=== PATIENT | male | born 1940 | race Caucasian/White ===

== ENCOUNTER 2020-06-30 13:41 | Inpatient (IN) | payer MEDICARE ==
[~2020-06-30 13:41] MED LIST: Rocuronium Bromide 10 MG/ML (10ML VIAL) ONE; ePHEDrine 50 MG/ML VIAL ONE
[2020-06-30] MEDS ORDERED: Piperacillin/Tazobactam 4.5 GM VIAL ONE (13:47)
[2020-06-30] MEDS ORDERED: Calcium Chloride 1 GM/10 ML Abboject SYRINGE ONE (13:58)
[2020-06-30 14:13] LABS: #Eosinphils 0.1 thou/uL (0.0-0.7); #Lymphocytes 3.6 thou/uL (1.20-3.40); #Monocytes 0.4 thou/uL (0.11-0.59); #Neutrophils 12.4 thou/uL (1.40-6.50); %Basophils 0.2 % (0.0-1.0); %Eosinophils 0.5 % (0.0-10.0); %Monocytes 2.2 % (0.0-10.0); Hemoglobin 11.1 g/dL (14.0-18.0); Mean Corpuscular HGB CONC 33.8 g/dL (32.0-36.0); Mean Corpuscular Hemoglobin 31.6 pg (27.0-31.0); Mean Corpuscular Volume 93.6 fL (78.0-98.0); Mean Platelet Volume 7.9 fL (7.4-10.4); Platelet Count 109 thou/uL (130-400); RBC Distribution Width 12.8 % (11.5-14.5); Red Blood Cell (RBC) Count 3.51 mill/uL (4.70-6.10); White Blood Cell (WBC) Count 16.5 thou/uL (4.8-10.8)
[2020-06-30] MEDS ORDERED: Fentanyl 250 MCG/5 ML VIAL ONE ×2 (14:13→22:27)
[2020-06-30] MEDS ORDERED: PHENYLEPHRINE-NS 100 MCG/ML 10 ML SYRINGE ONE (14:13)
[2020-06-30] MEDS ORDERED: ePHEDrine 50 MG/ML VIAL ONE (14:13)
[2020-06-30] MEDS ORDERED: Ketamine 50 MG/ML (10ML VIAL) ONE (14:13)
[2020-06-30] MEDS ORDERED: Phenylephrine 10 MG/ML VIAL ONE ×2 (14:14→22:27)
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
[2020-06-30 14:22] LABS: INR-International Normal Ratio 1.7; PTT 36.1 sec (22.9-36.1); Prothrombin Time 20.3 sec (12.0-14.7)
[2020-06-30 14:26] LABS: Burr Cells SLIGHT = 2-5 cells (100X) (0-1/hpf); MDiff Complete? YES; Platelet Morphology Comment Appears Decreased
[2020-06-30] MEDS ORDERED: HUMAN PROTHROMBIN COMPLX IV SCH ×2 (14:30→23:00)
[2020-06-30] MEDS ORDERED: ADMIXTURE FEE IV SCH ×2 (14:30→23:00)
[2020-06-30 14:42] LABS: ALT (SGPT) 19 U/L (8-55); AST (SGOT) 30 U/L (5-34); Albumin 2.5 g/dL (3.4-4.8); Alkaline Phosphatase 51 U/L (40-110); Anion Gap 19 mmol/L (10-20); BUN (Urea Nitrogen) 26 mg/dL (8.4-25.7); Bilirubin, Total 0.4 mg/dL (0.2-1.2); Calc. Creatinine Clearance 0 mL/min (70-130); Carbon Dioxide 17 mmol/L (23-31); Chloride 105 mmol/L (98-107); Globulin 2.1 g/dL (2.4-3.5); Glucose 315 mg/dL (83-110); Lipase 114 U/L (8-78); Potassium 4.5 mmol/L (3.5-5.1); Protein, Total 4.6 g/dL (5.8-8.1); Sodium 136 mmol/L (136-145)
[2020-06-30] MEDS ORDERED: EPINEPHrine 1 MG/10 ML Abboject SYRINGE ONE (14:46)
[2020-06-30] MEDS ORDERED: EPINEPHrine 1 MG/ML AMP ONE (14:46)
[2020-06-30 14:48] LABS: Lactic Acid 5.2 mmol/L (0.5-2.2)
[2020-06-30] MEDS ORDERED: Norepinephrine 4 MG/4 ML VIAL ONE (14:55)
[2020-06-30] MEDS ORDERED: Insulin Regular 300 UNITS/3 ML VIAL ONE (14:57)
[2020-06-30] MEDS ORDERED: Sodium Bicarb 50 MEQ/50 ML Abboject 8.4% SYRINGE ONE ×3 (15:03→23:22)
[2020-06-30] MEDS ORDERED: Vasopressin 20 UNIT, Admixture Fee 1 EACH in Sodium Chloride 0.9% 50 ML IV SCH (16:15)
--- NOTE | 2020-06-30 16:40 | RAD ---
Abdomen one view HISTORY: Abdominal surgery. Evaluate lap sponge. FINDINGS: Tip of the Dobbhoff feeding catheter projects over the left upper quadrant, at the expected location of the ligament of Treitz, directed towards the proximal jejunum. Nasogastric tube partially visualized, with the proximal port just below the level of the GE junction . Contrast material within the urinary collecting system from recent CT. Visualized bowel gas pattern is nonspecific. All of the abdomen to the left of midline is included on the image. The right abdomen is not fully included. No metallic foreign bodies to correlate with a needle or lap sponge are apparent.
[2020-06-30 16:59] LABS: Actual Bicarbonate (HCO3a) 20.1 mEq/L (22-28); Base Excess (BEa) -4.9 mEq/L (-2.0 to +3.0); CO2 Tension 37.1 mmHg (35.0-45.0); Carboxyhemoglobin (COHb) 0.2 gm% (0.0-3.0); Hemoglobin (Hb) 10.2 g/dL (14.0-18.0); O2 Tension (PaO2), arterial 94.6 mmHg (> 60.0); pH, Arterial 7.35 (7.35-7.45)
[2020-06-30 17:00] LABS: Calcium, Ionized (arterial) 1.18 mmol/L (1.12-1.30); Potassium - ABG Lab 2.98 mmol/L (3.70-5.30)
[2020-06-30 17:02] LABS: ALV-art Gradient 215.525 mmHg (0-20); Puncture Site Arterial Line
[2020-06-30] MEDS ORDERED: Dextrose 5% in Water 1,000 ML IV PRN (17:24)
[2020-06-30] MEDS ORDERED: Ventilator Sedation Protocol 1 EACH FS ONE (17:24)
[2020-06-30] MEDS ORDERED: Dextrose 50% Abboject 50 ML SYRINGE SLOW IVP PRN (17:24)
[2020-06-30] MEDS ORDERED: Albumin 5% 500 ML ONE (17:36)
[2020-06-30] MEDS ORDERED: Norepinephrine 8 MG/0.9% NS 250 ML IVPB SCH (17:45)
[2020-06-30 18:03] LABS: Hemoglobin 8.5 g/dL (14.0-18.0); Mean Corpuscular HGB CONC 34.8 g/dL (32.0-36.0); Mean Corpuscular Hemoglobin 30.8 pg (27.0-31.0); Mean Corpuscular Volume 88.4 fL (78.0-98.0); Mean Platelet Volume 7.5 fL (7.4-10.4); Platelet Count 100 thou/uL (130-400); RBC Distribution Width 13.6 % (11.5-14.5); Red Blood Cell (RBC) Count 2.75 mill/uL (4.70-6.10); White Blood Cell (WBC) Count 6.4 thou/uL (4.8-10.8)
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
[2020-06-30 18:16] LABS: Lactic Acid 6.5 mmol/L (0.5-2.2)
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
[2020-06-30 18:25] LABS: Anion Gap 16 mmol/L (10-20); BUN (Urea Nitrogen) 23 mg/dL (8.4-25.7); Calc. Creatinine Clearance 59 mL/min (70-130); Calcium 7.8 mg/dL (7.8-10.44); Carbon Dioxide 19 mmol/L (23-31); Chloride 111 mmol/L (98-107); Glucose 130 mg/dL (83-110); Magnesium 1.6 mg/dL (1.6-2.6); Potassium 3.3 mmol/L (3.5-5.1); Sodium 143 mmol/L (136-145)
[2020-06-30 18:26] LABS: SARS-CoV-2 NAA Rapid Test DETECTED (NotDetected)
[2020-06-30 18:30] LABS: Band 27 % (5-11); Eosinophils 2 % (0-10); Lymphocytes 17 % (21-51); MDiff Complete? YES; Monocytes 2 % (0-10); Neutrophil 49 % (42-75); Ovalocytes SLIGHT = 2-5 cells (100X) (0-1/hpf); Platelet Morphology Comment Appears Decreased; Polychromasia SLIGHT = 2-3 cells (100X) (0-2/hpf); Reactive Lymphocytes 2 % (0-10)
[2020-06-30] MEDS ORDERED: Morphine 2 MG/ML VIAL SLOW IVP PRN (18:45)
[2020-06-30] MEDS ORDERED: Norepinephrine 8 MG in Dextrose 5% in Water 242 ML IVPB SCH (18:45)
[2020-06-30] MEDS ORDERED: DISCONTINUE PREVIOUS NARCOTIC PAIN MEDICATIONS AND BENZODIAZEPINES FS SCH (18:45)
[2020-06-30] MEDS ORDERED: Propofol BOLUS 1,000 MG/100 ML VIAL IV PRN (18:45)
[2020-06-30] MEDS ORDERED: Magnesium 2 GM/50 ML 2 GM in Premix Bag 1 BAG IVPB SCH (18:45)
[2020-06-30] MEDS ORDERED: Fentanyl BOLUS 250 ML IVPB PRN (18:45)
[2020-06-30] MEDS ORDERED: Lorazepam 2 MG/ML VIAL SLOW IVP PRN (18:45)
[2020-06-30] MEDS ORDERED: Lactated Ringer's 1,000 ML IV SCH (18:45)
[2020-06-30] MEDS ORDERED: Potassium Phosphate 30 MMOL in Sodium Chloride 0.9% 500 ML IVPB SCH (19:00)
[2020-06-30] MEDS ORDERED: Piperacillin/Tazobactam 3.375 GM in Sodium Chloride 0.9% 100 ML IVPB SCH (20:00)
[2020-06-30 20:02] LABS: Mean Corpuscular HGB CONC 34.5 g/dL (32.0-36.0); Mean Corpuscular Hemoglobin 30.9 pg (27.0-31.0); Mean Corpuscular Volume 89.5 fL (78.0-98.0); Mean Platelet Volume 7.9 fL (7.4-10.4); Platelet Count 77 thou/uL (130-400); RBC Distribution Width 13.7 % (11.5-14.5); Red Blood Cell (RBC) Count 2.58 mill/uL (4.70-6.10); White Blood Cell (WBC) Count 7.5 thou/uL (4.8-10.8)
[2020-06-30 20:06] LABS: INR-International Normal Ratio 2.1; Prothrombin Time 23.7 sec (12.0-14.7)
[2020-06-30 20:07] LABS: PTT 48.1 sec (22.9-36.1)
[2020-06-30 20:11] LABS: FSP-Qualitative ABNORMAL (Normal); FSP-Semiquantitative >=5 & <20 mcg/mL (Less than 5); Fibrinogen 127 mg/dL (253-463)
[2020-06-30 20:14] LABS: D-Dimer Test 4.67 *mcg/mL (0.27-0.43)
[2020-06-30] MEDS ORDERED: Sodium Bicarb 50 MEQ/50 ML Abboject 8.4% SYRINGE IVP SCH (20:15)
[2020-06-30] MEDS: Lactated Ringer's 1,000 ML IV SCH (20:27)
[2020-06-30] MEDS ORDERED: Fentanyl 100 MCG/2 ML VIAL ONE (20:33)
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
[2020-06-30 20:51] LABS: Actual Bicarbonate (HCO3a) 20.6 mEq/L (22-28); Base Excess (BEa) -4.7 mEq/L (-2.0 to +3.0); CO2 Tension 38.7 mmHg (35.0-45.0); Calcium, Ionized (arterial) 0.96 mmol/L (1.12-1.30); Carboxyhemoglobin (COHb) 1.1 gm% (0.0-3.0); O2 Tension (PaO2), arterial 109.3 mmHg (> 60.0); Potassium - ABG Lab 3.78 mmol/L (3.70-5.30); pH, Arterial 7.34 (7.35-7.45)
[2020-06-30 20:53] LABS: Hemoglobin (Hb) 5.8 g/dL (14.0-18.0); Puncture Site Arterial Line
[2020-06-30 20:54] LABS: ALV-art Gradient 198.825 mmHg (0-20)
[2020-06-30] MEDS ORDERED: Fentanyl 100 MCG/2 ML VIAL SLOW IVP SCH (21:00)
[2020-06-30] MEDS ORDERED: Calcium Chloride 1 GM/10 ML Abboject SYRINGE IVP SCH (21:15)
[2020-06-30 21:17] LABS: Lactic Acid 8.1 mmol/L (0.5-2.2)
[2020-06-30 22:24] LABS: Lactic Acid 10.6 mmol/L (0.5-2.2)
[2020-06-30] MEDS ORDERED: Midazolam HCl 5 mg/5 ml Vial ONE (23:11)
[2020-06-30] MEDS ORDERED: Sodium Bicarbonate 2.5 MEQ/5 ML VIAL ONE (23:21)
[2020-07-01 00:26] LABS: Hemoglobin 8.3 g/dL (14.0-18.0); Mean Corpuscular HGB CONC 34.1 g/dL (32.0-36.0); Mean Corpuscular Volume 88.1 fL (78.0-98.0); Mean Platelet Volume 7.2 fL (7.4-10.4); Platelet Count 59 thou/uL (130-400); RBC Distribution Width 15.2 % (11.5-14.5); Red Blood Cell (RBC) Count 2.76 mill/uL (4.70-6.10); White Blood Cell (WBC) Count 3.7 thou/uL (4.8-10.8)
[2020-07-01 00:32] LABS: INR-International Normal Ratio 1.4; Prothrombin Time 17.5 sec (12.0-14.7)
[2020-07-01 00:33] LABS: PTT 45.1 sec (22.9-36.1)
[2020-07-01] MEDS: Propofol 1,000 MG/100 ML VIAL IV PRN (01:31)
[2020-07-01] MEDS: fentaNYL Citrate/PF 2,000 MCG in Sodium Chloride 0.9% 60 ML IV SCH ×2 (01:32→15:34)
[2020-07-01 02:06] LABS: Actual Bicarbonate (HCO3a) 25.2 mEq/L (22-28); Base Excess (BEa) 0.9 mEq/L (-2.0 to +3.0); CO2 Tension 38.6 mmHg (35.0-45.0); Calcium, Ionized (arterial) 1.04 mmol/L (1.12-1.30); Carboxyhemoglobin (COHb) 1.2 gm% (0.0-3.0); Hemoglobin (Hb) 7.6 g/dL (14.0-18.0); Potassium - ABG Lab 4.23 mmol/L (3.70-5.30); pH, Arterial 7.43 (7.35-7.45)
[2020-07-01] MEDS: Piperacillin/Tazobactam 3.375 GM in Sodium Chloride 0.9% 100 ML IVPB SCH ×4 (02:07→20:00)
[2020-07-01 02:09] LABS: O2 Tension (PaO2), arterial 53.9 mmHg (> 60.0)
[2020-07-01 02:10] LABS: Puncture Site Arterial Line
[2020-07-01] MEDS ORDERED: Calcium Chloride 1 GM/10 ML Abboject SYRINGE IVP SCH (03:00)
[2020-07-01 03:34] LABS: Actual Bicarbonate (HCO3a) 25.3 mEq/L (22-28); Base Excess (BEa) 1.8 mEq/L (-2.0 to +3.0); CO2 Tension 34.5 mmHg (35.0-45.0); Calcium, Ionized (arterial) 1.32 mmol/L (1.12-1.30); Carboxyhemoglobin (COHb) 0.7 gm% (0.0-3.0); Hemoglobin (Hb) 7.5 g/dL (14.0-18.0); O2 Tension (PaO2), arterial 106.2 mmHg (> 60.0); Potassium - ABG Lab 4.03 mmol/L (3.70-5.30); pH, Arterial 7.48 (7.35-7.45)
[2020-07-01 03:36] LABS: ALV-art Gradient 207.175 mmHg (0-20); Puncture Site Arterial Line
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
[2020-07-01 06:18] LABS: #Lymphocytes 1.3 thou/uL (1.20-3.40); #Monocytes 0.3 thou/uL (0.11-0.59); %Lymphocytes 29.4 % (21.0-51.0); %Monocytes 5.8 % (0.0-10.0); %Neutrophils 64.8 % (42.0-75.0); Hemoglobin 7.6 g/dL (14.0-18.0); Mean Corpuscular HGB CONC 34.9 g/dL (32.0-36.0); Mean Corpuscular Hemoglobin 30.7 pg (27.0-31.0); Mean Corpuscular Volume 87.9 fL (78.0-98.0); Mean Platelet Volume 9.1 fL (7.4-10.4); Platelet Count 75 thou/uL (130-400); RBC Distribution Width 15.1 % (11.5-14.5); Red Blood Cell (RBC) Count 2.48 mill/uL (4.70-6.10); White Blood Cell (WBC) Count 4.6 thou/uL (4.8-10.8)
[2020-07-01 06:21] LABS: INR-International Normal Ratio 1.4; Prothrombin Time 16.9 sec (12.0-14.7)
[2020-07-01 06:22] LABS: PTT 40.5 sec (22.9-36.1)
[2020-07-01 06:46] LABS: Lactic Acid 6.5 mmol/L (0.5-2.2)
[2020-07-01 06:51] LABS: ALT (SGPT) 88 U/L (8-55); AST (SGOT) 131 U/L (5-34); Albumin 2.8 g/dL (3.4-4.8); Alkaline Phosphatase 45 U/L (40-110); Anion Gap 20 mmol/L (10-20); BUN (Urea Nitrogen) 24 mg/dL (8.4-25.7); Bilirubin, Total 1.6 mg/dL (0.2-1.2); Calc. Creatinine Clearance 55 mL/min (70-130); Calcium 9.8 mg/dL (7.8-10.44); Carbon Dioxide 24 mmol/L (23-31); Chloride 107 mmol/L (98-107); Globulin 1.9 g/dL (2.4-3.5); Glucose 114 mg/dL (83-110); Magnesium 1.6 mg/dL (1.6-2.6); Phosphorus 5.6 mg/dL (2.3-4.7); Potassium 4.2 mmol/L (3.5-5.1); Protein, Total 4.7 g/dL (5.8-8.1); Sodium 147 mmol/L (136-145)
[2020-07-01] MEDS: Lactated Ringer's 1,000 ML IV SCH ×4 (07:20→20:26)
[2020-07-01 07:39] LABS: Actual Bicarbonate (HCO3a) 22.7 mEq/L (22-28); Base Excess (BEa) -0.9 mEq/L (-2.0 to +3.0); CO2 Tension 33.1 mmHg (35.0-45.0); Calcium, Ionized (arterial) 1.18 mmol/L (1.12-1.30); Carboxyhemoglobin (COHb) 1.5 gm% (0.0-3.0); Hemoglobin (Hb) 8.1 g/dL (14.0-18.0); O2 Tension (PaO2), arterial 125.9 mmHg (> 60.0); Potassium - ABG Lab 4.05 mmol/L (3.70-5.30); pH, Arterial 7.46 (7.35-7.45)
[2020-07-01 07:40] LABS: Puncture Site Arterial Line
[2020-07-01 07:41] LABS: ALV-art Gradient 189.225 mmHg (0-20)
[2020-07-01] MEDS ORDERED: Magnesium 2 GM/50 ML 2 GM in Premix Bag 1 BAG IVPB SCH (08:00)
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
[2020-07-01 08:33] LABS: INR-International Normal Ratio 1.5; PTT 40.9 sec (22.9-36.1); Prothrombin Time 18.3 sec (12.0-14.7)
--- NOTE | 2020-07-01 08:38 | RAD ---
PORTABLE SUPINE CHEST: INDICATION: Intubation. CCU followup. COMPARISON: 06/30/2020. FINDINGS: ET tube and NG tube unchanged. Central line unchanged. Bilateral effusions and right basilar atelectasis or infiltrate. The mid an d upper lung calloway are aerated and clear and unchanged from yesterday. IMPRESSION: Increasing opacification in the right lung base since yesterday probably representing atelectasis and /or increasing effusion. No other significant interval change. POS: AGW
[2020-07-01] MEDS: Pantoprazole 40 MG VIAL IVP SCH (08:58)
[2020-07-01 10:25] LABS: #Basophils 0.1 thou/uL (0.0-0.2); #Lymphocytes 1.2 thou/uL (1.20-3.40); #Monocytes 0.4 thou/uL (0.11-0.59); #Neutrophils 5.8 thou/uL (1.40-6.50); %Basophils 0.7 % (0.0-1.0); %Eosinophils 0.1 % (0.0-10.0); %Monocytes 5.4 % (0.0-10.0); %Neutrophils 77.8 % (42.0-75.0); Hemoglobin 7.9 g/dL (14.0-18.0); Mean Corpuscular HGB CONC 35.4 g/dL (32.0-36.0); Mean Corpuscular Hemoglobin 31.2 pg (27.0-31.0); Mean Corpuscular Volume 87.9 fL (78.0-98.0); Mean Platelet Volume 8.4 fL (7.4-10.4); Platelet Count 82 thou/uL (130-400); Platelet Morphology Comment Appears Decreased; RBC Distribution Width 14.7 % (11.5-14.5); RBC Morphology Normal; Red Blood Cell (RBC) Count 2.53 mill/uL (4.70-6.10); White Blood Cell (WBC) Count 7.4 thou/uL (4.8-10.8)
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
[2020-07-01 12:36] LABS: INR-International Normal Ratio 1.7; PTT 43.7 sec (22.9-36.1); Prothrombin Time 19.9 sec (12.0-14.7)
[2020-07-01 14:36] LABS: Actual Bicarbonate (HCO3a) 25.7 mEq/L (22-28); Base Excess (BEa) 2.2 mEq/L (-2.0 to +3.0); CO2 Tension 35.6 mmHg (35.0-45.0); Carboxyhemoglobin (COHb) 0.8 gm% (0.0-3.0); Hemoglobin (Hb) 8.4 g/dL (14.0-18.0); O2 Tension (PaO2), arterial 85.5 mmHg (> 60.0); Potassium - ABG Lab 3.98 mmol/L (3.70-5.30); pH, Arterial 7.48 (7.35-7.45)
[2020-07-01 14:37] LABS: Puncture Site Arterial Line
[2020-07-01 16:04] LABS: Hemoglobin 8.2 g/dL (14.0-18.0); Mean Corpuscular HGB CONC 33.8 g/dL (32.0-36.0); Mean Corpuscular Hemoglobin 30.1 pg (27.0-31.0); Mean Corpuscular Volume 89.1 fL (78.0-98.0); Mean Platelet Volume 9.1 fL (7.4-10.4); Platelet Count 81 thou/uL (130-400); RBC Distribution Width 14.7 % (11.5-14.5); Red Blood Cell (RBC) Count 2.73 mill/uL (4.70-6.10); White Blood Cell (WBC) Count 8.2 thou/uL (4.8-10.8)
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
[2020-07-01 16:23] LABS: Band 52 % (5-11); Dohle Bodies SLIGHT; Lymphocytes 13 % (21-51); MDiff Complete? YES; Metamyelocyte 12 % (0-0); Myelocyte 1 % (0-0); Neutrophil 22 % (42-75); Ovalocytes SLIGHT = 2-5 cells (100X) (0-1/hpf); Platelet Morphology Comment Appears Decreased; Polychromasia SLIGHT = 2-3 cells (100X) (0-2/hpf)
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
[2020-07-01] MEDS ORDERED: Lactated Ringer's 500 ML IV SCH (20:00)
[2020-07-01] MEDS: Senokot S 8.6-50 MG TAB PO SCH (20:24)
[2020-07-01 20:31] LABS: Actual Bicarbonate (HCO3a) 25.9 mEq/L (22-28); Base Excess (BEa) 2.2 mEq/L (-2.0 to +3.0); CO2 Tension 36.1 mmHg (35.0-45.0); Calcium, Ionized (arterial) 1.18 mmol/L (1.12-1.30); Carboxyhemoglobin (COHb) 0.9 gm% (0.0-3.0); Hemoglobin (Hb) 7.6 g/dL (14.0-18.0); O2 Tension (PaO2), arterial 71.5 mmHg (> 60.0); Potassium - ABG Lab 3.75 mmol/L (3.70-5.30); pH, Arterial 7.47 (7.35-7.45)
[2020-07-01 20:33] LABS: ALV-art Gradient 239.875 mmHg (0-20); Puncture Site Arterial Line
[2020-07-01 21:26] LABS: Anion Gap 16 mmol/L (10-20); BUN (Urea Nitrogen) 26 mg/dL (8.4-25.7); Calc. Creatinine Clearance 53 mL/min (70-130); Calcium 8.7 mg/dL (7.8-10.44); Carbon Dioxide 28 mmol/L (23-31); Chloride 108 mmol/L (98-107); Glucose 138 mg/dL (83-110); Magnesium 1.7 mg/dL (1.6-2.6); Phosphorus 3.6 mg/dL (2.3-4.7); Potassium 3.9 mmol/L (3.5-5.1); Sodium 148 mmol/L (136-145)
[2020-07-01 21:50] LABS: Lactic Acid 5.7 mmol/L (0.5-2.2)
[2020-07-01 23:33] LABS: Band 36 % (5-11); Hemoglobin 7.8 g/dL (14.0-18.0); Lymphocytes 16 % (21-51); MDiff Complete? YES; Mean Corpuscular HGB CONC 34.6 g/dL (32.0-36.0); Mean Corpuscular Hemoglobin 31.1 pg (27.0-31.0); Mean Corpuscular Volume 89.9 fL (78.0-98.0); Mean Platelet Volume 8.9 fL (7.4-10.4); Metamyelocyte 2 % (0-0); Monocytes 2 % (0-10); Neutrophil 40 % (42-75); Platelet Count 75 thou/uL (130-400); Platelet Morphology Comment Appears Decreased; RBC Distribution Width 14.5 % (11.5-14.5); Reactive Lymphocytes 4 % (0-10); Red Blood Cell (RBC) Count 2.51 mill/uL (4.70-6.10); White Blood Cell (WBC) Count 8.1 thou/uL (4.8-10.8)
[2020-07-02] MEDS: Piperacillin/Tazobactam 3.375 GM in Sodium Chloride 0.9% 100 ML IVPB SCH ×4 (01:50→20:23)
--- NOTE | 2020-07-02 02:57 | PRG ---
DATE OF SERVICE: 07/01/2020 SUBJECTIVE: The patient was seen during evening rounds in the critical care unit. The patient remains on full ventilatory support. The patient was requiring Levophed earlier today, but is off all vasopressors at this time. The patient was given a 500 mL bolus of lactated Ringer's, which improved the patient's blood pressure and also 1 unit of packed red blood cells and 1 unit of fresh frozen plasma. The patient follows commands and denies being in any pain. Urinary output has been adequate for patient's age and weight. Abdominal wound VAC in place with serosanguineous output. OBJECTIVE: GENERAL: Well-appearing elderly male, awake, alert, follows commands. RESPIRATORY: Respirations are even and nonlabored, bilateral basilar lung sounds. LABORATORY DATA: WBC 8.1, RBC 2.51, hemoglobin 7.8, hematocrit 22.5, bands 36. Lactate 5.7. PLAN: Continue to resuscitate. Continue to monitor urinary output. Repeat labs in the morning. Job ID: [id number] MTDD
[2020-07-02] MEDS: fentaNYL Citrate/PF 2,000 MCG in Sodium Chloride 0.9% 60 ML IV SCH ×2 (03:07→17:25)
[2020-07-02 05:03] LABS: INR-International Normal Ratio 1.5
[2020-07-02 05:04] LABS: PTT 38.7 sec (22.9-36.1)
[2020-07-02 05:07] LABS: #Lymphocytes 1.2 thou/uL (1.20-3.40); #Monocytes 0.6 thou/uL (0.11-0.59); #Neutrophils 9.2 thou/uL (1.40-6.50); %Basophils 0.1 % (0.0-1.0); %Lymphocytes 11.1 % (21.0-51.0); %Monocytes 5.8 % (0.0-10.0); Hemoglobin 9.8 g/dL (14.0-18.0); Mean Corpuscular Hemoglobin 31.1 pg (27.0-31.0); Mean Corpuscular Volume 91.3 fL (78.0-98.0); Mean Platelet Volume 8.9 fL (7.4-10.4); Platelet Count 89 thou/uL (130-400); RBC Distribution Width 14.5 % (11.5-14.5); Red Blood Cell (RBC) Count 3.14 mill/uL (4.70-6.10); White Blood Cell (WBC) Count 11.1 thou/uL (4.8-10.8)
[2020-07-02 05:26] LABS: Anion Gap 14 mmol/L (10-20); BUN (Urea Nitrogen) 25 mg/dL (8.4-25.7); Calc. Creatinine Clearance 56 mL/min (70-130); Calcium 8.7 mg/dL (7.8-10.44); Carbon Dioxide 30 mmol/L (23-31); Chloride 107 mmol/L (98-107); Glucose 124 mg/dL (83-110); Lactic Acid 4.7 mmol/L (0.5-2.2); Magnesium 1.6 mg/dL (1.6-2.6); Phosphorus 3.5 mg/dL (2.3-4.7); Sodium 147 mmol/L (136-145)
[2020-07-02] MEDS: Lactated Ringer's 1,000 ML IV SCH (05:42)
[2020-07-02] MEDS ORDERED: Magnesium Sulfate 3 GM in Sodium Chloride 0.9% 100 ML IVPB SCH (06:33)
[2020-07-02 07:05] LABS: Hemoglobin 8.6 g/dL (14.0-18.0)
[2020-07-02] MEDS ORDERED: Potassium Phosphate 15 MMOL in Sodium Chloride 0.9% 250 ML 250 ML IVPB SCH (08:00)
[2020-07-02 08:01] LABS: Actual Bicarbonate (HCO3a) 28.5 mEq/L (22-28); Base Excess (BEa) 5.4 mEq/L (-2.0 to +3.0); CO2 Tension 35.6 mmHg (35.0-45.0); Calcium, Ionized (arterial) 1.16 mmol/L (1.12-1.30); Carboxyhemoglobin (COHb) 0.9 gm% (0.0-3.0); Hemoglobin (Hb) 8.1 g/dL (14.0-18.0); O2 Tension (PaO2), arterial 65.7 mmHg (> 60.0); Potassium - ABG Lab 3.57 mmol/L (3.70-5.30); pH, Arterial 7.52 (7.35-7.45)
[2020-07-02] MEDS: Polyethylene Glycol 3350 17 GM Packet PO SCH (08:06)
[2020-07-02] MEDS: Senokot S 8.6-50 MG TAB PO SCH ×2 (08:06→20:25)
[2020-07-02] MEDS: Pantoprazole 40 MG VIAL IVP SCH (08:07)
[2020-07-02 08:16] LABS: Puncture Site Arterial Line
--- NOTE | 2020-07-02 08:18 | RAD ---
EXAM: Single view of the chest HISTORY: Intubated patient with respiratory failure COMPARISON: 07/01/2020 FINDINGS: Single view of the chest shows an enlarged cardiomediastinal silhouette. Lines and tubes a re unchanged in position. A calcified granuloma projects over the right upper lobe. There is a moderate to large veil like opacity in the right thorax which likely represents a layering pleural ef fusion. Degenerative changes are seen in the spine. IMPRESSION: Moderate right pleural effusion
[2020-07-02] MEDS: Sodium Chloride 0.45% 1,000 ML IV SCH ×3 (08:36→22:59)
[2020-07-02] MEDS ORDERED: Lactated Ringer's 1,000 ML IV SCH (10:15)
[2020-07-02] MEDS: Midazolam HCl 2 mg/2 ml Vial ONE ×2 (10:41→11:30)
[2020-07-02] MEDS ORDERED: Lidocaine 1% (PF) 30 ML VIAL ONE (10:48)
[2020-07-02] MEDS ORDERED: Midazolam HCl 5 mg/5 ml Vial SLOW IVP SCH (11:00)
[2020-07-02] MEDS ORDERED: Rocuronium Bromide 10 MG/ML (10ML VIAL) ONE ×2 (11:24)
[2020-07-02] MEDS ORDERED: PHENYLEPHRINE-NS 100 MCG/ML 10 ML SYRINGE ONE (11:24)
[2020-07-02] MEDS ORDERED: Calcium Chloride 1 GM/10 ML Abboject SYRINGE ONE (11:24)
[2020-07-02] MEDS ORDERED: Fentanyl 100 MCG/2 ML VIAL ONE (14:33)
[2020-07-02] MEDS ORDERED: Ketamine 50 MG/ML (10ML VIAL) ONE (15:00)
[2020-07-02] MEDS ORDERED: Albumin 25% 100 ML ONE (15:28)
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
[2020-07-02 17:56] LABS: Actual Bicarbonate (HCO3a) 22.2 mEq/L (22-28); Base Excess (BEa) 0.5 mEq/L (-2.0 to +3.0); CO2 Tension 26.4 mmHg (35.0-45.0); Carboxyhemoglobin (COHb) 0.3 gm% (0.0-3.0); Hemoglobin (Hb) 10.2 g/dL (14.0-18.0); pH, Arterial 7.54 (7.35-7.45)
[2020-07-02 17:57] LABS: O2 Tension (PaO2), arterial 57.5 mmHg (> 60.0); Puncture Site Arterial Line
[2020-07-02 18:06] LABS: #Lymphocytes 0.8 thou/uL (1.20-3.40); #Monocytes 0.4 thou/uL (0.11-0.59); #Neutrophils 5.3 thou/uL (1.40-6.50); %Basophils 0.2 % (0.0-1.0); %Lymphocytes 11.7 % (21.0-51.0); %Monocytes 5.7 % (0.0-10.0); %Neutrophils 82.4 % (42.0-75.0); Mean Corpuscular HGB CONC 35.1 g/dL (32.0-36.0); Mean Corpuscular Hemoglobin 32.6 pg (27.0-31.0); Mean Corpuscular Volume 92.8 fL (78.0-98.0); Mean Platelet Volume 8.8 fL (7.4-10.4); Platelet Count 48 thou/uL (130-400); RBC Distribution Width 13.6 % (11.5-14.5); Red Blood Cell (RBC) Count 3.06 mill/uL (4.70-6.10); White Blood Cell (WBC) Count 6.4 thou/uL (4.8-10.8)
[2020-07-02 18:12] LABS: INR-International Normal Ratio 1.5; PTT 36.4 sec (22.9-36.1); Prothrombin Time 18.5 sec (12.0-14.7)
[2020-07-02] MEDS ORDERED: Calcium Chloride 13.6 MEQ in Sodium Chloride 0.9% 100 ML IVPB SCH (18:15)
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
[2020-07-02 18:28] LABS: Lactic Acid 3.7 mmol/L (0.5-2.2)
[2020-07-02 18:53] LABS: Phosphorus 3.8 mg/dL (2.3-4.7)
[2020-07-02 18:56] LABS: Anion Gap 16 mmol/L (10-20); BUN (Urea Nitrogen) 24 mg/dL (8.4-25.7); Calc. Creatinine Clearance 67 mL/min (70-130); Carbon Dioxide 23 mmol/L (23-31); Chloride 109 mmol/L (98-107); Glucose 180 mg/dL (83-110); Magnesium 1.8 mg/dL (1.6-2.6); Potassium 3.7 mmol/L (3.5-5.1); Sodium 144 mmol/L (136-145)
[2020-07-02] MEDS ORDERED: Magnesium Sulfate 2 GM in Sodium Chloride 0.9% 100 ML IVPB SCH (19:45)
[2020-07-02] MEDS ORDERED: Potassium Phosphate 15 MMOL, Magnesium Sulfate 2 GM in Sodium Chloride 0.9% 250 ML 250 ML IVPB SCH (19:45)
[2020-07-02] MEDS: Famotidine/PF 20 mg/2ml Vial SLOW IVP SCH (20:24)
[2020-07-02] MEDS: Propofol 1,000 MG/100 ML VIAL IV PRN (21:18)
[2020-07-02 22:26] LABS: Actual Bicarbonate (HCO3a) 24.6 mEq/L (22-28); Base Excess (BEa) 2.6 mEq/L (-2.0 to +3.0); CO2 Tension 28.7 mmHg (35.0-45.0); Calcium, Ionized (arterial) 1.17 mmol/L (1.12-1.30); Carboxyhemoglobin (COHb) 0.3 gm% (0.0-3.0); Hemoglobin (Hb) 9.4 g/dL (14.0-18.0); O2 Tension (PaO2), arterial 112.6 mmHg (> 60.0); Potassium - ABG Lab 3.39 mmol/L (3.70-5.30)
[2020-07-02 22:40] LABS: Puncture Site Arterial Line; pH, Arterial 7.55 (7.35-7.45)
[2020-07-02 22:41] LABS: ALV-art Gradient 243.675 mmHg (0-20)
[2020-07-02] MEDS: Ondansetron PF 4 MG/2 ML Vial IVP PRN (23:43)
--- NOTE | 2020-07-03 00:56 | PRG ---
DATE OF SERVICE: 07/02/2020 SUBJECTIVE: The patient was seen during evening rounds, sedated on full mechanical ventilatory support. The patient was taken back to the OR today by Dr. Carver for a re-exploratory laparotomy, segmental transverse colectomy and ligation of bleeding in the middle colic artery and evacuation of a large hemoperitoneum, abdominal washout and temporary abdominal closure with wound VAC. The patient did receive multiple blood products in the OR. Postop, the patient was hypotensive and requiring Levophed earlier today. The patient is currently off all vasopressors at this time. The patient has episodes of being hypertensive when he becomes anxious. Output from wound VAC currently 400 mL. Urinary output is adequate for age and weight. OBJECTIVE: VITAL SIGNS: Stable and the patient remains afebrile. HEENT: Head is atraumatic and normocephalic. Pupils are equal bilateral. No JVD. RESPIRATORY: Respirations are even and nonlabored, scattered rhonchi. CARDIAC: Irregularly irregular rhythm. ABDOMEN: Soft, nondistended, wound VAC in place. Return of moderate amount of serosanguineous fluid. LABORATORY DATA: P.m. labs; WBC 6.4, RBC 3.06, hemoglobin 10.0, hematocrit 28.4, and platelets 48. PT 18.5, INR 1.5, and APTT 36.4. Sodium 144, potassium 3.7, chloride 109, carbon dioxide 23, BUN 24, creatinine 1.44, estimated GFR 47, glucose 180, lactic acid 3.7, calcium 8.0, phosphorus 3.8, and magnesium 1.8. ABG; bicarb 24.6, pH 7.55, CO2 of 28.7, PO2 of 112.6, base excess 2.6, hemoglobin 9.4, hematocrit 28.0, ionized calcium 1.17. PLAN: Continue supportive care and full ventilatory support. We will decrease ventilatory rate to 14. Repeat labs and ABG in the morning. Replace electrolytes. Continue to monitor hemodynamics and urinary output. Job ID: [id number] [facility]
[2020-07-03] MEDS: Piperacillin/Tazobactam 3.375 GM in Sodium Chloride 0.9% 100 ML IVPB SCH ×4 (02:03→20:58)
[2020-07-03 04:36] LABS: INR-International Normal Ratio 1.5; Prothrombin Time 18.7 sec (12.0-14.7)
[2020-07-03 04:37] LABS: PTT 38.4 sec (22.9-36.1)
[2020-07-03 04:47] LABS: #Lymphocytes 0.8 thou/uL (1.20-3.40); #Monocytes 0.5 thou/uL (0.11-0.59); %Basophils 0.3 % (0.0-1.0); %Lymphocytes 12.7 % (21.0-51.0); %Monocytes 8.3 % (0.0-10.0); %Neutrophils 78.6 % (42.0-75.0); Hemoglobin 9.1 g/dL (14.0-18.0); Lactic Acid 2.1 mmol/L (0.5-2.2); Mean Corpuscular HGB CONC 35.8 g/dL (32.0-36.0); Mean Corpuscular Hemoglobin 33.5 pg (27.0-31.0); Mean Corpuscular Volume 93.5 fL (78.0-98.0); Mean Platelet Volume 9.3 fL (7.4-10.4); Platelet Count 46 thou/uL (130-400); RBC Distribution Width 13.9 % (11.5-14.5); Red Blood Cell (RBC) Count 2.72 mill/uL (4.70-6.10); White Blood Cell (WBC) Count 6.4 thou/uL (4.8-10.8)
[2020-07-03 05:06] LABS: Anion Gap 10 mmol/L (10-20); BUN (Urea Nitrogen) 23 mg/dL (8.4-25.7); Calc. Creatinine Clearance 73 mL/min (70-130); Calcium 8.3 mg/dL (7.8-10.44); Carbon Dioxide 28 mmol/L (23-31); Chloride 110 mmol/L (98-107); Glucose 118 mg/dL (83-110); Phosphorus 2.2 mg/dL (2.3-4.7); Potassium 3.4 mmol/L (3.5-5.1); Sodium 145 mmol/L (136-145)
[2020-07-03] MEDS ORDERED: Potassium Phosphate 30 MMOL in Sodium Chloride 0.9% 250 ML 250 ML IVPB SCH (07:30)
[2020-07-03 08:03] LABS: Actual Bicarbonate (HCO3a) 25.1 mEq/L (22-28); Base Excess (BEa) 3.1 mEq/L (-2.0 to +3.0); CO2 Tension 28.7 mmHg (35.0-45.0); Calcium, Ionized (arterial) 1.16 mmol/L (1.12-1.30); Carboxyhemoglobin (COHb) 0.9 gm% (0.0-3.0); Hemoglobin (Hb) 8.6 g/dL (14.0-18.0); O2 Tension (PaO2), arterial 96.6 mmHg (> 60.0); Potassium - ABG Lab 3.45 mmol/L (3.70-5.30)
[2020-07-03] MEDS: fentaNYL Citrate/PF 2,000 MCG in Sodium Chloride 0.9% 60 ML IV SCH (08:03)
[2020-07-03 08:18] LABS: Puncture Site Arterial Line; pH, Arterial 7.56 (7.35-7.45)
[2020-07-03 08:19] LABS: ALV-art Gradient 259.675 mmHg (0-20)
[2020-07-03] MEDS: Polyethylene Glycol 3350 17 GM Packet PO SCH (08:21)
[2020-07-03] MEDS: Senokot S 8.6-50 MG TAB PO SCH ×2 (08:21→20:58)
[2020-07-03] MEDS: Pantoprazole 40 MG VIAL IVP SCH (08:22)
[2020-07-03] MEDS: Sodium Chloride 0.45% 1,000 ML IV SCH ×2 (08:22→11:29)
[2020-07-03] MEDS: Famotidine/PF 20 mg/2ml Vial SLOW IVP SCH ×2 (08:22→20:57)
--- NOTE | 2020-07-03 09:25 | RAD ---
SUPINE PORTABLE CHEST: INDICATION: Chest tube. CCU followup. COMPARISON: 07/02/2020. FINDINGS/IMPRESSION: ET tube and NG tube remain in place. There is a right-sided chest tube along the lateral right chest with tip into the right apex. Central line overlies the upper SVC. Upper lungs are aerated. No significant pneumothorax. Left base is opacified obscuring the hemidiap hragm which may represent effusion and/or basilar atelectasis or infiltrate. POS: AGW
[2020-07-03 10:50] LABS: Actual Bicarbonate (HCO3a) 24.5 mEq/L (22-28); Base Excess (BEa) 1.3 mEq/L (-2.0 to +3.0); CO2 Tension 33.5 mmHg (35.0-45.0); Calcium, Ionized (arterial) 1.14 mmol/L (1.12-1.30); Carboxyhemoglobin (COHb) 0.3 gm% (0.0-3.0); Hemoglobin (Hb) 9.5 g/dL (14.0-18.0); O2 Tension (PaO2), arterial 100.9 mmHg (> 60.0); Potassium - ABG Lab 3.86 mmol/L (3.70-5.30); pH, Arterial 7.48 (7.35-7.45)
[2020-07-03 10:52] LABS: Puncture Site Arterial Line
[2020-07-03 10:56] LABS: ALV-art Gradient 178.075 mmHg (0-20)
[2020-07-03] MEDS: Dexamethasone 4 mg/ml Vial SLOW IVP SCH ×3 (11:57→23:33)
[2020-07-03] MEDS ORDERED: Dexamethasone Sod Phosphate 4 MG in Sodium Chloride 0.9% 50 ML IVPB SCH (12:00)
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
--- NOTE | 2020-07-03 23:11 | PRG ---
DATE OF SERVICE: 07/03/2020 SUBJECTIVE: Patient was seen during evening rounds on the critical care unit. The patient is currently sedated with fentanyl 75 mcg and Precedex 0.6 mg. The patient's vital signs are stable and he remains afebrile. Urinary output is adequate. The patient's abdominal wound VAC output since last change is approximately 50 mL. The patient's urinary output is adequate for age and weight. PLAN: Continue full ventilatory support. Continue sedation. The patient will be going to the OR by Dr. Carver for possible abdominal closure correction tomorrow. Repeat labs in the morning. Job ID: [id number]
[2020-07-03] MEDS: Insulin Regular 300 UNITS/3 ML VIAL SC PRN (23:34)
[2020-07-04] MEDS: Sodium Chloride 0.45% 1,000 ML IV SCH ×2 (01:36→13:31)
[2020-07-04] MEDS: Piperacillin/Tazobactam 3.375 GM in Sodium Chloride 0.9% 100 ML IVPB SCH ×4 (01:42→22:17)
[2020-07-04] MEDS: fentaNYL Citrate/PF 2,000 MCG in Sodium Chloride 0.9% 60 ML IV SCH (04:21)
[2020-07-04 04:40] LABS: INR-International Normal Ratio 1.2; PTT 34.5 sec (22.9-36.1); Prothrombin Time 15.3 sec (12.0-14.7)
[2020-07-04 04:51] LABS: Lactic Acid 1.7 mmol/L (0.5-2.2)
[2020-07-04 05:06] LABS: Anion Gap 13 mmol/L (10-20); BUN (Urea Nitrogen) 25 mg/dL (8.4-25.7); Calc. Creatinine Clearance 87 mL/min (70-130); Calcium 7.7 mg/dL (7.8-10.44); Carbon Dioxide 26 mmol/L (23-31); Chloride 109 mmol/L (98-107); Glucose 186 mg/dL (83-110); Potassium 3.8 mmol/L (3.5-5.1); Sodium 144 mmol/L (136-145)
[2020-07-04 05:18] LABS: Band 24 % (5-11); Hemoglobin 10.1 g/dL (14.0-18.0); Lymphocytes 5 % (21-51); MDiff Complete? YES; Mean Corpuscular HGB CONC 33.3 g/dL (32.0-36.0); Mean Corpuscular Volume 93.3 fL (78.0-98.0); Monocytes 9 % (0-10); Myelocyte 2 % (0-0); Neutrophil 60 % (42-75); Platelet Count 70 thou/uL (130-400); Platelet Morphology Comment Appears Decreased; RBC Distribution Width 13.9 % (11.5-14.5); Red Blood Cell (RBC) Count 3.26 mill/uL (4.70-6.10); White Blood Cell (WBC) Count 9.1 thou/uL (4.8-10.8)
[2020-07-04] MEDS: Dexamethasone 4 mg/ml Vial SLOW IVP SCH ×4 (05:43→23:35)
[2020-07-04] MEDS ORDERED: Midazolam HCl 5 mg/5 ml Vial ONE (07:04)
[2020-07-04] MEDS ORDERED: Fentanyl 100 MCG/2 ML VIAL ONE (07:04)
[2020-07-04 07:59] LABS: Actual Bicarbonate (HCO3a) 22.8 mEq/L (22-28); Base Excess (BEa) -0.5 mEq/L (-2.0 to +3.0); CO2 Tension 32.6 mmHg (35.0-45.0); Calcium, Ionized (arterial) 1.12 mmol/L (1.12-1.30); Carboxyhemoglobin (COHb) 0.3 gm% (0.0-3.0); Hemoglobin (Hb) 10.3 g/dL (14.0-18.0); O2 Tension (PaO2), arterial 81.7 mmHg (> 60.0); Potassium - ABG Lab 3.74 mmol/L (3.70-5.30); pH, Arterial 7.46 (7.35-7.45)
--- NOTE | 2020-07-04 08:01 | RAD ---
XR Chest 1 View Portable History: Respiratory failure Comparison: Radiograph prior day Findings: Endotracheal tube tip at the clavicular level. Weighted feeding tube and enteric tube tip j ust below diaphragm although out of field of view. Moderate effusions. Moderate bibasilar atelectasis. No pneumothorax. Left subclavian approach intravenous catheter tip projects over the azygos vein. Impression: Similar examination of the chest.
[2020-07-04] MEDS: Pantoprazole 40 MG VIAL IVP SCH (08:11)
[2020-07-04 08:16] LABS: Puncture Site Arterial Line
[2020-07-04] MEDS ORDERED: Vecuronium 10 MG VIAL ONE (09:22)
[2020-07-04] MEDS ORDERED: Rocuronium Bromide 10 MG/ML (10ML VIAL) ONE (09:22)
[2020-07-04] MEDS ORDERED: ePHEDrine 50 MG/ML VIAL ONE (09:22)
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
[2020-07-04] MEDS: Insulin Regular 300 UNITS/3 ML VIAL SC PRN ×2 (16:16→22:25)
[2020-07-05] MEDS: Piperacillin/Tazobactam 3.375 GM in Sodium Chloride 0.9% 100 ML IVPB SCH ×4 (01:54→20:40)
--- NOTE | 2020-07-05 02:00 | PRG ---
DATE OF SERVICE: 07/04/2020 SUBJECTIVE: Patient was seen during evening rounds in the critical care unit. The patient is awake, alert, confused and mildly agitated. The patient is currently on Precedex 0.4 and fentanyl 50 mcg an hour. The patient's vital signs are stable. He remains afebrile. PLAN: Continue supportive care and pain regimen. Physical and occupational therapy. Job ID: [id number]
[2020-07-05] MEDS: Dexamethasone 4 mg/ml Vial SLOW IVP SCH (05:01)
[2020-07-05] MEDS: Sodium Chloride 0.45% 1,000 ML IV SCH (05:02)
[2020-07-05 05:39] LABS: Lactic Acid 1.9 mmol/L (0.5-2.2)
[2020-07-05 05:52] LABS: Anion Gap 12 mmol/L (10-20); BUN (Urea Nitrogen) 27 mg/dL (8.4-25.7); Calc. Creatinine Clearance 86 mL/min (70-130); Calcium 7.3 mg/dL (7.8-10.44); Carbon Dioxide 27 mmol/L (23-31); Chloride 110 mmol/L (98-107); Glucose 149 mg/dL (83-110); Magnesium 1.9 mg/dL (1.6-2.6); Phosphorus 1.8 mg/dL (2.3-4.7); Potassium 3.8 mmol/L (3.5-5.1); Sodium 145 mmol/L (136-145)
[2020-07-05] MEDS ORDERED: Potassium Phosphate 30 MMOL in Sodium Chloride 0.9% 250 ML 250 ML IVPB SCH (06:45)
[2020-07-05 07:01] LABS: Band 28 % (5-11); Hemoglobin 11.1 g/dL (14.0-18.0); Lymphocytes 8 % (21-51); MDiff Complete? YES; Mean Corpuscular HGB CONC 32.5 g/dL (32.0-36.0); Mean Corpuscular Hemoglobin 31.3 pg (27.0-31.0); Mean Corpuscular Volume 96.3 fL (78.0-98.0); Mean Platelet Volume 8.6 fL (7.4-10.4); Monocytes 14 % (0-10); Myelocyte 1 % (0-0); Neutrophil 49 % (42-75); Platelet Count 112 thou/uL (130-400); Platelet Morphology Comment Appears Decreased; RBC Distribution Width 14.2 % (11.5-14.5); Red Blood Cell (RBC) Count 3.55 mill/uL (4.70-6.10); White Blood Cell (WBC) Count 16.8 thou/uL (4.8-10.8)
[2020-07-05] MEDS: Pantoprazole 40 MG VIAL IVP SCH (07:32)
[2020-07-05] MEDS ORDERED: Morphine 4 MG/ML VIAL SLOW IVP PRN ×2 (07:56→08:01)
[2020-07-05] MEDS ORDERED: Morphine 2 MG/ML VIAL SLOW IVP PRN ×2 (07:56→08:01)
--- NOTE | 2020-07-05 08:19 | RAD ---
XR Chest 1 View Portable History: Chest tube Comparison: Radiograph prior day Findings: Right thoracostomy tube tip at the lung apex. Weighted feeding tube tip below diaphragm alt cezar likely within the third portion duodenum in good position. The suction tube tip not well seen on the likely the gastric body. Left subclavian central venous catheter is similar. Moderate layering effusions. Impression: Similar examination of the chest.
[2020-07-05] MEDS ORDERED: traMADol HCl 50 MG TAB PO PRN (10:17)
[2020-07-05] MEDS ORDERED: Cyclobenzaprine 10 MG TAB PO PRN (10:17)
[2020-07-05] MEDS: Enoxaparin Sodium 30 MG/0.3 ML SYRINGE SC SCH (10:39)
[2020-07-05] MEDS: Insulin Regular 300 UNITS/3 ML VIAL SC PRN (11:00)
[2020-07-05] MEDS: Acetaminophen 500 MG TAB PO SCH ×2 (11:46→18:03)
[2020-07-05] MEDS: Morphine 2 MG/ML VIAL SLOW IVP PRN (12:45)
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
[2020-07-05] MEDS: Albuterol 200 PUFF (6.7GM INHALER) INH SCH ×3 (15:04→18:04)
[2020-07-05] MEDS: Furosemide 20 MG/2 ML VIAL SLOW IVP SCH ×2 (15:30→20:41)
[2020-07-05] MEDS: traMADol HCl 50 MG TAB PO PRN (15:30)
[2020-07-05] MEDS: Gabapentin 100 MG CAP PO SCH ×2 (15:30→20:40)
[2020-07-06] MEDS: Morphine 2 MG/ML VIAL SLOW IVP PRN ×2 (00:35→06:22)
[2020-07-06] MEDS: Acetaminophen 500 MG TAB PO SCH ×4 (00:36→17:32)
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
[2020-07-06] MEDS: Piperacillin/Tazobactam 3.375 GM in Sodium Chloride 0.9% 100 ML IVPB SCH ×4 (02:40→20:28)
[2020-07-06 04:03] LABS: Anion Gap 13 mmol/L (10-20); BUN (Urea Nitrogen) 33 mg/dL (8.4-25.7); Calc. Creatinine Clearance 84 mL/min (70-130); Calcium 7.1 mg/dL (7.8-10.44); Carbon Dioxide 27 mmol/L (23-31); Chloride 109 mmol/L (98-107); Glucose 126 mg/dL (83-110); Magnesium 1.9 mg/dL (1.6-2.6); Phosphorus 2.2 mg/dL (2.3-4.7); Potassium 3.6 mmol/L (3.5-5.1); Sodium 145 mmol/L (136-145)
[2020-07-06 04:23] LABS: Band 20 % (5-11); Hemoglobin 10.9 g/dL (14.0-18.0); Lymphocytes 9 % (21-51); MDiff Complete? YES; Mean Corpuscular HGB CONC 33.7 g/dL (32.0-36.0); Mean Corpuscular Hemoglobin 31.8 pg (27.0-31.0); Mean Corpuscular Volume 94.2 fL (78.0-98.0); Mean Platelet Volume 8.1 fL (7.4-10.4); Metamyelocyte 4 % (0-0); Monocytes 4 % (0-10); Myelocyte 2 % (0-0); Neutrophil 61 % (42-75); Nucleated RBC 1 % (0); Platelet Count 137 thou/uL (130-400); RBC Distribution Width 14.4 % (11.5-14.5); Red Blood Cell (RBC) Count 3.44 mill/uL (4.70-6.10); White Blood Cell (WBC) Count 15.7 thou/uL (4.8-10.8)
[2020-07-06] MEDS: Albuterol 200 PUFF (6.7GM INHALER) INH SCH ×3 (05:44→17:36)
[2020-07-06] MEDS: Furosemide 20 MG/2 ML VIAL SLOW IVP SCH (05:44)
[2020-07-06] MEDS ORDERED: Magnesium 2 GM/50 ML 2 GM in Premix Bag 1 BAG IVPB SCH (07:45)
[2020-07-06] MEDS ORDERED: Potassium Phosphate 30 MMOL in Sodium Chloride 0.9% 250 ML 250 ML IVPB SCH (07:45)
[2020-07-06] MEDS: Pantoprazole 40 MG VIAL IVP SCH (08:07)
[2020-07-06] MEDS: Enoxaparin Sodium 30 MG/0.3 ML SYRINGE SC SCH (08:07)
[2020-07-06] MEDS: Gabapentin 100 MG CAP PO SCH ×3 (08:08→20:29)
[2020-07-06] MEDS ORDERED: FLU VACC QS2020-21(65YR UP)/PF 240 MCG/0.7 ML SYRINGE IM ONE (09:00)
--- NOTE | 2020-07-06 09:46 | RAD ---
XR Chest 1 View Portable History: Chest tube evaluation Comparison: Radiograph prior day Findings: Similar location right thoracostomy tube with tip near the lung apex. Left subclavian centr al venous catheter is similar. The enteric and endotracheal tubes were removed. Dense calcifications transverse aorta. Heart size is enlarged. Small/moderate layering left pleural effusion. No large right pneumothorax. Impression: Review of the enteric and endotracheal tubes otherwise similar exam.
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
[2020-07-06 17:23] LABS: Bacteria/HPF None Seen HPF (None Seen); Bilirubin Negative (Negative); Blood, Urine Negative (Negative); Clarity Clear (Clear); Glucose, Urine (Dipstick) Normal (Negative); Ketone, Urine Negative (Negative); Leukocyte Negative Leu/uL (Negative); Nitrite Negative (Negative); Protein, Urine (Dipstick) Negative (Neg-Trace); RBC/HPF 0-3 HPF (0-3); Specific Gravity, Urine 1.024 (1.002-1.036); Squamous Epithelial None Seen HPF (0-3); Urobilinogen Normal mg/dL (Less than 2); WBC/HPF 0-3 HPF (0-3); pH, Urine 5.5 (5.0-9.0)
[2020-07-06 17:28] LABS: Urine Culture Reflex No No
[2020-07-06] MEDS ORDERED: Tamsulosin HCl 0.4 MG CAP PO SCH (19:30)
[2020-07-06] MEDS: Lactated Ringer's 1,000 ML IV SCH (20:28)
[2020-07-07] MEDS: Piperacillin/Tazobactam 3.375 GM in Sodium Chloride 0.9% 100 ML IVPB SCH ×2 (01:20→13:15)
[2020-07-07] MEDS: Acetaminophen 500 MG TAB PO SCH ×5 (01:20→22:23)
--- NOTE | 2020-07-07 01:48 | PRG ---
DATE OF SERVICE: 07/06/2020 SUBJECTIVE: Patient was seen during evening rounds in the intermediate care unit. The patient is currently resting in no distress. The patient did have some urinary retention earlier today with I and O cath with output of 650. The patient is due to void currently. The patient still has not had a bowel movement. The patient remains n.p.o. at this time. Flomax was started this evening. His vital signs are stable and he remains afebrile. The patient continues to have urinary retention. We will replace the Avitia. Continue supportive care and pain regimen. Continue incentive spirometer and aggressive pulmonary toilet. Job ID: [id number]
[2020-07-07 04:55] LABS: Anion Gap 14 mmol/L (10-20); BUN (Urea Nitrogen) 32 mg/dL (8.4-25.7); Calc. Creatinine Clearance 97 mL/min (70-130); Carbon Dioxide 26 mmol/L (23-31); Chloride 108 mmol/L (98-107); Glucose 110 mg/dL (83-110); Magnesium 2.3 mg/dL (1.6-2.6); Phosphorus 2.1 mg/dL (2.3-4.7); Potassium 3.6 mmol/L (3.5-5.1); Sodium 144 mmol/L (136-145)
[2020-07-07] MEDS: Albuterol 200 PUFF (6.7GM INHALER) INH SCH ×3 (05:36→18:27)
[2020-07-07 05:57] LABS: Band 25 % (5-11); Hemoglobin 10.7 g/dL (14.0-18.0); Lymphocytes 12 % (21-51); MDiff Complete? YES; Mean Corpuscular HGB CONC 32.1 g/dL (32.0-36.0); Mean Corpuscular Hemoglobin 30.5 pg (27.0-31.0); Mean Corpuscular Volume 94.9 fL (78.0-98.0); Mean Platelet Volume 7.9 fL (7.4-10.4); Monocytes 6 % (0-10); Myelocyte 1 % (0-0); Neutrophil 55 % (42-75); Platelet Count 168 thou/uL (130-400); RBC Distribution Width 14.7 % (11.5-14.5); Reactive Lymphocytes 1 % (0-10); White Blood Cell (WBC) Count 15.4 thou/uL (4.8-10.8)
[2020-07-07] MEDS ORDERED: Potassium Phosphate 30 MMOL in Sodium Chloride 0.9% 250 ML 250 ML IVPB SCH (08:30)
--- NOTE | 2020-07-07 09:13 | RAD ---
PORTABLE CHEST: Date: 07/07/2020 HISTORY: Assessment of chest tube status. COMPARISON: 07/06/2020 exam. FINDINGS: Heart size is enlarged. Left-sided parenchymal lung changes are similar to the prior exam. Right ches t tube is unchanged in position. No pneumothorax identified. IMPRESSION: Stable exam. POS: OFF
[2020-07-07] MEDS: Gabapentin 100 MG CAP PO SCH ×3 (09:36→22:23)
[2020-07-07] MEDS: Amlodipine 10 MG TAB PO SCH (09:36)
[2020-07-07] MEDS: Tamsulosin HCl 0.4 MG CAP PO SCH (09:36)
[2020-07-07] MEDS: Enoxaparin Sodium 30 MG/0.3 ML SYRINGE SC SCH (09:37)
[2020-07-07] MEDS: Pantoprazole 40 MG VIAL IVP SCH (09:37)
[2020-07-07] MEDS: traMADol HCl 50 MG TAB PO PRN (09:58)
--- NOTE | 2020-07-07 10:48 | RAD ---
ABDOMEN 1 VIEW: Date: 07/07/2020 HISTORY: Dobbhoff tube placement. COMPARISON: Radiograph of abdomen dated 06/30/2020. FINDINGS: The enteric-weighted feeding tube tip projects over the second portion of the duodenum. Tube projects over the right lower quadrant of the abdomen. Right thoracostomy tube is in place. Small left effusi on. Distended loops of small bowel in the upper abdomen. IMPRESSION: Weighted feeding tube tip projecting over the second portion of the duodenum. POS: [facility]
[2020-07-07] MEDS: Morphine 2 MG/ML VIAL SLOW IVP PRN (10:53)
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
[2020-07-07] MEDS: Lactated Ringer's 1,000 ML IV SCH ×2 (17:28→22:20)
[2020-07-08 04:41] LABS: Anion Gap 16 mmol/L (10-20); BUN (Urea Nitrogen) 29 mg/dL (8.4-25.7); Calc. Creatinine Clearance 124 mL/min (70-130); Calcium 7.2 mg/dL (7.8-10.44); Carbon Dioxide 23 mmol/L (23-31); Chloride 110 mmol/L (98-107); Glucose 123 mg/dL (83-110); Magnesium 2.3 mg/dL (1.6-2.6); Phosphorus 1.5 mg/dL (2.3-4.7); Potassium 3.7 mmol/L (3.5-5.1); Sodium 145 mmol/L (136-145)
[2020-07-08 04:45] LABS: Band 12 % (5-11); Hemoglobin 11.1 g/dL (14.0-18.0); Lymphocytes 6 % (21-51); MDiff Complete? YES; Mean Corpuscular HGB CONC 33.2 g/dL (32.0-36.0); Mean Corpuscular Hemoglobin 31.3 pg (27.0-31.0); Mean Corpuscular Volume 94.3 fL (78.0-98.0); Monocytes 6 % (0-10); Myelocyte 2 % (0-0); Neutrophil 74 % (42-75); Platelet Count 202 thou/uL (130-400); Polychromasia SLIGHT = 2-3 cells (100X) (0-2/hpf); RBC Distribution Width 14.5 % (11.5-14.5); Red Blood Cell (RBC) Count 3.55 mill/uL (4.70-6.10); White Blood Cell (WBC) Count 16.3 thou/uL (4.8-10.8)
[2020-07-08] MEDS: Acetaminophen 500 MG TAB PO SCH ×3 (06:06→17:55)
[2020-07-08] MEDS: Morphine 2 MG/ML VIAL SLOW IVP PRN (06:06)
[2020-07-08] MEDS: Ondansetron PF 4 MG/2 ML Vial IVP PRN (06:24)
[2020-07-08] MEDS ORDERED: Magnesium Sulfate 4 GM in Sodium Chloride 0.9% 250 ML 250 ML IVPB SCH (08:30)
[2020-07-08] MEDS ORDERED: Potassium Phosphate 30 MMOL, Magnesium Sulfate 4 GM in Sodium Chloride 0.9% 250 ML 250 ML IVPB SCH (08:30)
--- NOTE | 2020-07-08 09:10 | RAD ---
EXAM: XR Abdomen 2 View/1 View Cxr PROVIDED CLINICAL HISTORY: Chest tube, ileus COMPARISON: Chest radiograph and KUB 07/07/2020 FINDINGS: Cardiac and mediastinal silhouette is unchanged in appearance. Vascular calcification is again seen. Left basilar pleural-parenchymal opacity is redemonstrated. Right-sided chest tube is again seen, as is enteric catheter. There is no evidence for pneumothorax. Supine and left lateral decubitus radiographs of the abdomen demonstrate persistent gaseous distentio n of small bowel. The decubitus radiographs demonstrate no evidence for pneumoperitoneum. Enteric catheter position is unchanged. No radiographically apparent urinary tract calculi. The osseous struc tures demonstrate no acute findings. IMPRESSION: 1. Stable radiographic appearance of the chest. 2. Persistent gaseous distention of small bowel.
[2020-07-08] MEDS: Pantoprazole 40 MG VIAL IVP SCH (10:16)
[2020-07-08] MEDS: Amlodipine 10 MG TAB PO SCH (10:17)
[2020-07-08] MEDS: Gabapentin 100 MG CAP PO SCH ×3 (10:17→20:53)
[2020-07-08] MEDS: Enoxaparin Sodium 30 MG/0.3 ML SYRINGE SC SCH (10:27)
[2020-07-08] MEDS: Tamsulosin HCl 0.4 MG CAP PO SCH (10:28)
[2020-07-08] MEDS: Magnesium 2 GM/50 ML 2 GM in Premix Bag 1 BAG IVPB SCH ×2 (10:33→11:48)
[2020-07-08] MEDS: Albuterol 200 PUFF (6.7GM INHALER) INH SCH ×3 (11:48→18:24)
[2020-07-08] MEDS ORDERED: Magnesium 2 GM/50 ML 2 GM in Premix Bag 1 BAG IVPB SCH (13:00)
[2020-07-08] MEDS ORDERED: Metoclopramide HCl 10 MG/2 ML VIAL IVP SCH ×2 (13:45→21:00)
[2020-07-08 14:05] VITALS: BMI 41.9
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
[2020-07-08] MEDS: Atorvastatin Calcium 10 MG TAB PO SCH (20:55)
[2020-07-09] MEDS: Acetaminophen 500 MG TAB PO SCH ×5 (00:11→23:47)
[2020-07-09] MEDS: Lactated Ringer's 1,000 ML IV SCH ×2 (01:53→11:57)
[2020-07-09 05:21] LABS: Anion Gap 11 mmol/L (10-20); BUN (Urea Nitrogen) 35 mg/dL (8.4-25.7); Calc. Creatinine Clearance 110 mL/min (70-130); Calcium 7.2 mg/dL (7.8-10.44); Carbon Dioxide 29 mmol/L (23-31); Chloride 111 mmol/L (98-107); Glucose 142 mg/dL (83-110); Magnesium 2.8 mg/dL (1.6-2.6); Phosphorus 2.9 mg/dL (2.3-4.7); Sodium 147 mmol/L (136-145)
[2020-07-09 05:33] LABS: Band 16 % (5-11); Hemoglobin 10.4 g/dL (14.0-18.0); Lymphocytes 10 % (21-51); MDiff Complete? YES; Mean Corpuscular HGB CONC 32.5 g/dL (32.0-36.0); Mean Corpuscular Hemoglobin 31.1 pg (27.0-31.0); Mean Corpuscular Volume 95.7 fL (78.0-98.0); Mean Platelet Volume 7.8 fL (7.4-10.4); Monocytes 4 % (0-10); Myelocyte 2 % (0-0); Neutrophil 67 % (42-75); Nucleated RBC 1 % (0); Platelet Count 280 thou/uL (130-400); RBC Distribution Width 15.3 % (11.5-14.5); Reactive Lymphocytes 1 % (0-10); Red Blood Cell (RBC) Count 3.33 mill/uL (4.70-6.10); White Blood Cell (WBC) Count 17.6 thou/uL (4.8-10.8)
[2020-07-09] MEDS: Albuterol 200 PUFF (6.7GM INHALER) INH SCH ×3 (06:30→19:30)
--- NOTE | 2020-07-09 07:45 | RAD ---
Portable frontal chest radiograph: 07/09/2020 COMPARISON: 07/07/2020 HISTORY: Evaluate chest following removal of chest tube FINDINGS: There is a Dobbhoff tube extending into the upper abdomen. There is stable dense pleural an d parenchymal opacity within the left lung base. Stable left vascular catheter. The left vascular catheter appears to have been retracted slightly sin ce the prior examination. The distal tip overlies midline mediastinum, exact location uncertain. Interval removal of right chest tube with no evidence for pneumothorax. Probable bilateral pleural ef fusions, left greater than right. IMPRESSION: Dense opacity in the left base persists. Interval removal of right chest tube with no rig ht pneumothorax. Left vascular catheter is terminating over the midline mediastinum, exact location uncertain. Arterial location cannot be excluded. Clinical correlation is thus advised. Message sent via [employer] connect to Wily Argueta 7:40 AM 07/09/2020
[2020-07-09] MEDS ORDERED: Furosemide 20 MG/2 ML VIAL SLOW IVP SCH (09:00)
[2020-07-09] MEDS ORDERED: Furosemide 40 MG/4 ML VIAL SLOW IVP SCH (09:00)
[2020-07-09] MEDS: Morphine 2 MG/ML VIAL SLOW IVP PRN (09:01)
[2020-07-09] MEDS: Enoxaparin Sodium 30 MG/0.3 ML SYRINGE SC SCH (10:58)
[2020-07-09] MEDS: Polyethylene Glycol 3350 17 GM Packet PER TUBE SCH (10:58)
[2020-07-09] MEDS: Tamsulosin HCl 0.4 MG CAP PO SCH (11:02)
[2020-07-09] MEDS: Amlodipine 10 MG TAB PO SCH (11:02)
[2020-07-09] MEDS: Gabapentin 100 MG CAP PO SCH ×3 (11:02→22:20)
[2020-07-09] MEDS: Citalopram 20 MG TAB PO SCH (11:02)
[2020-07-09] MEDS: Pantoprazole 40 MG VIAL IVP SCH (11:03)
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
[2020-07-09] MEDS: Metoclopramide HCl 10 MG/2 ML VIAL IVP SCH ×2 (14:48→22:21)
[2020-07-09] MEDS: Atorvastatin Calcium 10 MG TAB PO SCH (22:21)
[2020-07-09] MEDS: Furosemide 20 MG/2 ML VIAL SLOW IVP SCH (22:22)
[2020-07-10] MEDS: Lactated Ringer's 1,000 ML IV SCH (03:18)
[2020-07-10] MEDS: Metoclopramide HCl 10 MG/2 ML VIAL IVP SCH ×2 (06:05→14:31)
[2020-07-10] MEDS: Acetaminophen 500 MG TAB PO SCH ×3 (06:05→17:27)
[2020-07-10] MEDS: Furosemide 20 MG/2 ML VIAL SLOW IVP SCH (06:05)
[2020-07-10] MEDS ORDERED: Sterile Water 10 ML VIAL IVP SCH (06:45)
[2020-07-10] MEDS ORDERED: Activase 2 MG VIAL CATH SCH (06:45)
[2020-07-10] MEDS: Albuterol 200 PUFF (6.7GM INHALER) INH SCH ×3 (06:51→17:26)
[2020-07-10] MEDS: Gabapentin 100 MG CAP PO SCH ×2 (08:10→14:32)
[2020-07-10] MEDS: Enoxaparin Sodium 30 MG/0.3 ML SYRINGE SC SCH (08:10)
[2020-07-10] MEDS: Tamsulosin HCl 0.4 MG CAP PO SCH (08:11)
[2020-07-10] MEDS: Polyethylene Glycol 3350 17 GM Packet PER TUBE SCH (08:11)
[2020-07-10] MEDS: Citalopram 20 MG TAB PO SCH (08:11)
[2020-07-10] MEDS: Amlodipine 10 MG TAB PO SCH (08:11)
[2020-07-10] MEDS: Pantoprazole 40 MG VIAL IVP SCH (08:11)
[2020-07-10 10:14] VITALS: BP 114/57
[2020-07-10 10:29] LABS: Hemoglobin 11.1 g/dL (14.0-18.0); Mean Corpuscular HGB CONC 32.9 g/dL (32.0-36.0); Mean Corpuscular Volume 97.2 fL (78.0-98.0); Mean Platelet Volume 7.4 fL (7.4-10.4); Platelet Count 332 thou/uL (130-400); RBC Distribution Width 15.7 % (11.5-14.5); Red Blood Cell (RBC) Count 3.46 mill/uL (4.70-6.10)
[2020-07-10 10:30] LABS: ALT (SGPT) 43 U/L (8-55); AST (SGOT) 42 U/L (5-34); Alkaline Phosphatase 113 U/L (40-110); Bilirubin, Direct 0.9 mg/dL (0.1-0.3); Bilirubin, Total 1.4 mg/dL (0.2-1.2); Protein, Total 5.5 g/dL (5.8-8.1)
[2020-07-10 10:33] LABS: Anion Gap 13 mmol/L (10-20); BUN (Urea Nitrogen) 33 mg/dL (8.4-25.7); Calc. Creatinine Clearance 93 mL/min (70-130); Calcium 7.4 mg/dL (7.8-10.44); Carbon Dioxide 29 mmol/L (23-31); Chloride 111 mmol/L (98-107); Glucose 174 mg/dL (83-110); Magnesium 2.3 mg/dL (1.6-2.6); Phosphorus 1.9 mg/dL (2.3-4.7); Potassium 3.5 mmol/L (3.5-5.1); Sodium 149 mmol/L (136-145)
[2020-07-10] MEDS ORDERED: Potassium Phosphate 30 MMOL in Sodium Chloride 0.9% 250 ML 250 ML IVPB SCH (10:45)
[2020-07-10 10:54] LABS: Anisocytosis SLIGHT = 6-15 cells (100X) (0-5/hpf); Band 4 % (5-11); Hypochromia SLIGHT = 6-15 cells (100X) (0-5/hpf); Lymphocytes 5 % (21-51); MDiff Complete? YES; Macrocytosis SLIGHT = 6-15 cells (100X) (0-5/hpf); Monocytes 6 % (0-10); Neutrophil 85 % (42-75); Platelet Morphology Comment Appears Adequate; Polychromasia SLIGHT = 2-3 cells (100X) (0-2/hpf); White Blood Cell (WBC) Count 26.7 thou/uL (4.8-10.8)
[2020-07-10] MEDS ORDERED: EPINEPHrine 1 MG/10 ML Abboject SYRINGE ONE (11:41)
[2020-07-10] MEDS ORDERED: Amiodarone 150 MG/3 ML VIAL ONE (11:41)
[2020-07-10] MEDS ORDERED: Magnesium 5 GM/10 ML Abboject SYRINGE ONE (11:41)
[2020-07-10] MEDS ORDERED: Sodium Bicarb 50 MEQ/50 ML Abboject 8.4% SYRINGE ONE (11:41)
[2020-07-10] MEDS ORDERED: Albumin 25% 25 GM/100 ML BOT IVPB SCH ×2 (13:30→21:30)
[2020-07-10] MEDS ORDERED: Furosemide 20 MG/2 ML VIAL SLOW IVP SCH (14:00)
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
[2020-07-10 15:35] LABS: Bacteria/HPF None Seen HPF (None Seen); Bilirubin Negative (Negative); Blood, Urine Negative (Negative); Clarity Clear (Clear); Glucose, Urine (Dipstick) Normal (Negative); Ketone, Urine Negative (Negative); Leukocyte Negative Leu/uL (Negative); Nitrite Negative (Negative); Protein, Urine (Dipstick) Negative (Neg-Trace); RBC/HPF 0-3 HPF (0-3); Specific Gravity, Urine 1.012 (1.002-1.036); Squamous Epithelial None Seen HPF (0-3); Urobilinogen Normal mg/dL (Less than 2); WBC/HPF 0-3 HPF (0-3); pH, Urine 5.5 (5.0-9.0)
[2020-07-10 15:39] LABS: Urine Culture Reflex No No
[2020-07-10 16:41] VITALS: TEMP 97.5
[2020-07-10] MEDS ORDERED: Norepinephrine 8 MG/0.9% NS 250 ML ONE (18:59)
[2020-07-10] MEDS ORDERED: EPINEPHrine 1 MG/ML AMP ONE (19:12)
[2020-07-10] MEDS ORDERED: Hydrocortisone Sod Succ/PF 100 mg/2 ml Vial ONE (19:15)
[2020-07-10] MEDS ORDERED: EPINEPHrine 4 MG in Dextrose 5% in Water 250 ML IV SCH (19:15)
--- NOTE | 2020-07-10 19:19 | RAD ---
RADIOGRAPH CHEST 1 VIEW: DATE: 07/10/2020 TIME: 7:03 PM HISTORY: 80-year-old male with "increase in pulmonary congestion" COMPARISON: 07/09/2020 FINDINGS: Again noted is the left-sided central vascular catheter with chest overlaps the aortic knob, and the distal tip slightly to the right of midline in the mediastinum. Exact location uncertain. Dobbhoff feeding tube remains. There is a new esophageal catheter with distal tip overlying the expected locat ion of the proximal stomach, perhaps gastric cardia. There continues to be a small to moderate size region of dense consolidation at the left lung base, and there may be small bilateral pleural effusio ns. No cardiomegaly. No pulmonary edema. New mild streaky densities radiating peripherally from the right hilum, especially in the right lower lobe. This probably represents subsegmental atelectasis. N o pneumothorax. What appears to be a new endotracheal tube is seen, with distal tip 7 cm superior to clay. IMPRESSION: 1) interval placement of endotracheal tube into upper thoracic trachea. 2.) Interval placement of esophagogastric tube into the proximal stomach. 3) new streaky right perihilar pulmonary densities, especially in the right lower lobe. Probably subs egmental atelectasis. 4) dense opacification at base of left lower lobe unchanged. This may represent atelectasis.
[2020-07-10 19:22] LABS: Hemoglobin 9.7 g/dL (14.0-18.0); Mean Corpuscular HGB CONC 31.4 g/dL (32.0-36.0); Mean Corpuscular Hemoglobin 31.2 pg (27.0-31.0); Mean Corpuscular Volume 99.1 fL (78.0-98.0); Mean Platelet Volume 7.5 fL (7.4-10.4); Platelet Count 322 thou/uL (130-400); RBC Distribution Width 15.8 % (11.5-14.5); Red Blood Cell (RBC) Count 3.12 mill/uL (4.70-6.10); White Blood Cell (WBC) Count 25.5 thou/uL (4.8-10.8)
[2020-07-10 19:24] LABS: Actual Bicarbonate (HCO3a) 25.3 mEq/L (22-28); Base Excess (BEa) -6.8 mEq/L (-2.0 to +3.0); Calcium, Ionized (arterial) 1.22 mmol/L (1.12-1.30); Carboxyhemoglobin (COHb) 0.8 gm% (0.0-3.0); Hemoglobin (Hb) 10.4 g/dL (14.0-18.0); O2 Tension (PaO2), arterial 113.9 mmHg (> 60.0); Potassium - ABG Lab 3.96 mmol/L (3.70-5.30)
[2020-07-10 19:26] LABS: CO2 Tension 98.7 mmHg (35.0-45.0); pH, Arterial 7.03 (7.35-7.45)
[2020-07-10 19:27] LABS: Puncture Site RRA
[2020-07-10 19:28] LABS: ALV-art Gradient 475.725 mmHg (0-20)
[2020-07-10] MEDS ORDERED: Vasopressin 20 UNIT, Admixture Fee 1 EACH in Sodium Chloride 0.9% 50 ML IV SCH (19:30)
[2020-07-10 19:38] LABS: Anisocytosis SLIGHT = 6-15 cells (100X) (0-5/hpf); Band 17 % (5-11); Lymphocytes 12 % (21-51); MDiff Complete? YES; Metamyelocyte 2 % (0-0); Myelocyte 1 % (0-0); Neutrophil 68 % (42-75); Ovalocytes SLIGHT = 2-5 cells (100X) (0-1/hpf); Platelet Morphology Comment Appears Adequate; Polychromasia MODERATE = 3-4 cells (100X) (0-2/hpf)
[2020-07-10 19:40] LABS: Lactic Acid 7.5 mmol/L (0.5-2.2)
[2020-07-10 19:43] LABS: Actual Bicarbonate (HCO3a) 31.8 mEq/L (22-28); Base Excess (BEa) 1.7 mEq/L (-2.0 to +3.0); Carboxyhemoglobin (COHb) 0.8 gm% (0.0-3.0); O2 Tension (PaO2), arterial 93.2 mmHg (> 60.0); Potassium - ABG Lab 3.75 mmol/L (3.70-5.30)
[2020-07-10 19:46] LABS: ALV-art Gradient 508.425 mmHg (0-20); CO2 Tension 89.1 mmHg (35.0-45.0); Puncture Site RFA; pH, Arterial 7.17 (7.35-7.45)
[2020-07-10 19:48] LABS: Anion Gap 19 mmol/L (10-20); BUN (Urea Nitrogen) 39 mg/dL (8.4-25.7); Calc. Creatinine Clearance 54 mL/min (70-130); Carbon Dioxide 24 mmol/L (23-31); Chloride 113 mmol/L (98-107); Glucose 172 mg/dL (83-110); Magnesium 3.4 mg/dL (1.6-2.6); Phosphorus 7.5 mg/dL (2.3-4.7); Potassium 4.5 mmol/L (3.5-5.1); Sodium 151 mmol/L (136-145)
[2020-07-10] MEDS ORDERED: Heparin 25,000 units/D5W 500 ML IVPB SCH (20:00)
[2020-07-10] MEDS ORDERED: Heparin 10,000 UNITS/ 10 ML VIAL SLOW IVP SCH (20:00)
[2020-07-10] MEDS ORDERED: Calcium Chloride 13.6 MEQ in Sodium Chloride 0.9% 100 ML IVPB SCH (20:00)
[2020-07-10] MEDS ORDERED: Norepinephrine 8 MG/0.9% NS 250 ML IVPB SCH (20:30)
[2020-07-10 20:31] LABS: Hemoglobin 9.4 g/dL (14.0-18.0); Platelet Count 312 thou/uL (130-400)
[2020-07-10 20:51] LABS: Troponin I 0.032 ng/mL (< 0.028)
[2020-07-10] MEDS ORDERED: Sodium Chloride 0.9% 1,000 ML IV SCH (21:00)
[2020-07-10 21:02] LABS: Actual Bicarbonate (HCO3a) 28.5 mEq/L (22-28); Base Excess (BEa) -5.5 mEq/L (-2.0 to +3.0); Calcium, Ionized (arterial) 1.16 mmol/L (1.12-1.30); Carboxyhemoglobin (COHb) 1.1 gm% (0.0-3.0); Hemoglobin (Hb) 9.5 g/dL (14.0-18.0); Potassium - ABG Lab 4.12 mmol/L (3.70-5.30)
[2020-07-10 21:04] LABS: CO2 Tension 138.5 mmHg (35.0-45.0); pH, Arterial 6.93 (7.35-7.45)
[2020-07-10 21:05] LABS: ALV-art Gradient 481.375 mmHg (0-20); O2 Tension (PaO2), arterial 58.5 mmHg (> 60.0); Puncture Site RFA
[2020-07-10] MEDS ORDERED: Midazolam HCl 2 mg/2 ml Vial ONE (21:43)
[2020-07-10] MEDS ORDERED: Vecuronium 10 MG VIAL ONE (21:43)
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
[2020-07-11] MEDS ORDERED: Albumin 25% 25 GM/100 ML BOT IVPB SCH (05:30)
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
--- NOTE | 2020-07-13 15:16 | EKG ---
Test Reason : Blood Pressure : / mmHG Vent. Rate : 132 BPM Atrial Rate : 241 BPM P-R Int : 000 ms QRS Dur : 136 ms QT Int : 378 ms P-R-T Axes : 000 -62 059 degrees QTc Int : 560 ms Wide QRS tachycardia Right bundle branch block Left anterior fascicular block Bifascicular block Inferior infarct , age undetermined Abnormal ECG No previous ECGs available Confirmed by LILLY BAUTISTA, DR. Milner ([id number]) on 07/13/2020 3:16:12 PM Referred By: Confirmed By:DR. Annia CARR MD
[2020-07-14 10:43] LABS: Actual Bicarbonate (HCO3a) 17.3 mEq/L (22-28); Analyzer IN Cardio OR; Base Excess (BEa) -10.2 mEq/L (-2.0 to +3.0); CO2 Tension 46.8 mmHg (35.0-45.0); Carboxyhemoglobin (COHb) 1.1 gm% (0.0-3.0); Hemoglobin (Hb) 7.1 g/dL (14.0-18.0); O2 Tension (PaO2), arterial 258.1 mmHg (> 60.0); Potassium - ABG Lab 5.03 mmol/L (3.70-5.30)
[2020-07-14 10:44] LABS: Actual Bicarbonate (HCO3a) 24.7 mEq/L (22-28); Analyzer IN Cardio OR; Base Excess (BEa) -1.5 mEq/L (-2.0 to +3.0); CO2 Tension 49.4 mmHg (35.0-45.0); Carboxyhemoglobin (COHb) 1.6 gm% (0.0-3.0); O2 Tension (PaO2), arterial 227.9 mmHg (> 60.0); Potassium - ABG Lab 4.37 mmol/L (3.70-5.30); pH, Arterial 7.32 (7.35-7.45)
[2020-07-14 10:44] LABS: Actual Bicarbonate (HCO3a) 21.7 mEq/L (22-28); Analyzer IN Cardio OR; Base Excess (BEa) -4.5 mEq/L (-2.0 to +3.0); CO2 Tension 45.6 mmHg (35.0-45.0); Calcium, Ionized (arterial) 1.01 mmol/L (1.12-1.30); Hemoglobin (Hb) 8.3 g/dL (14.0-18.0); O2 Tension (PaO2), arterial 236.5 mmHg (> 60.0); Potassium - ABG Lab 4.78 mmol/L (3.70-5.30)
[2020-07-14 10:47] LABS: Actual Bicarbonate (HCO3a) 18.6 mEq/L (22-28); Analyzer IN Cardio OR; CO2 Tension 53.6 mmHg (35.0-45.0); Calcium, Ionized (arterial) 1.06 mmol/L (1.12-1.30); Carboxyhemoglobin (COHb) 0.1 gm% (0.0-3.0); Hemoglobin (Hb) 10.4 g/dL (14.0-18.0); O2 Tension (PaO2), arterial 101.3 mmHg (> 60.0)
[2020-07-14 10:48] LABS: Actual Bicarbonate (HCO3a) 19.9 mEq/L (22-28); Analyzer IN Cardio OR; Base Excess (BEa) -6.4 mEq/L (-2.0 to +3.0); CO2 Tension 42.6 mmHg (35.0-45.0); Calcium, Ionized (arterial) 0.96 mmol/L (1.12-1.30); Carboxyhemoglobin (COHb) 0.3 gm% (0.0-3.0); Hemoglobin (Hb) 10.2 g/dL (14.0-18.0); O2 Tension (PaO2), arterial 94.1 mmHg (> 60.0); Potassium - ABG Lab 3.17 mmol/L (3.70-5.30); pH, Arterial 7.29 (7.35-7.45)
[2020-07-14 10:54] LABS: Puncture Site Arterial Line
[2020-07-14 10:55] LABS: Puncture Site Arterial Line
[2020-07-14 10:56] LABS: Puncture Site Arterial Line; pH, Arterial 7.19 (7.35-7.45)
[2020-07-14 10:57] LABS: Puncture Site Arterial Line
[2020-07-14 10:58] LABS: Puncture Site Arterial Line
[2020-07-14 10:59] LABS: pH, Arterial 7.16 (7.35-7.45)
[2020-07-14 11:09] LABS: Analyzer IN Cardio OR; Base Excess (BEa) 4.3 mEq/L (-2.0 to +3.0); CO2 Tension 37.7 mmHg (35.0-45.0); Calcium, Ionized (arterial) 1.14 mmol/L (1.12-1.30); Carboxyhemoglobin (COHb) 0.2 gm% (0.0-3.0); Hemoglobin (Hb) 7.7 g/dL (14.0-18.0); O2 Tension (PaO2), arterial 262.4 mmHg (> 60.0); Potassium - ABG Lab 3.81 mmol/L (3.70-5.30); pH, Arterial 7.49 (7.35-7.45)
[2020-07-14 11:09] LABS: Actual Bicarbonate (HCO3a) 23.5 mEq/L (22-28); Analyzer IN Cardio OR; Base Excess (BEa) -2.9 mEq/L (-2.0 to +3.0); CO2 Tension 48.1 mmHg (35.0-45.0); Carboxyhemoglobin (COHb) 0.3 gm% (0.0-3.0); Hemoglobin (Hb) 10.1 g/dL (14.0-18.0); O2 Tension (PaO2), arterial 114.6 mmHg (> 60.0); pH, Arterial 7.31 (7.35-7.45)
[2020-07-14 11:10] LABS: Analyzer IN Cardio OR; Base Excess (BEa) -1.8 mEq/L (-2.0 to +3.0); CO2 Tension 45.1 mmHg (35.0-45.0); Carboxyhemoglobin (COHb) 0.3 gm% (0.0-3.0); Hemoglobin (Hb) 10.4 g/dL (14.0-18.0); O2 Tension (PaO2), arterial 218.1 mmHg (> 60.0); Potassium - ABG Lab 3.45 mmol/L (3.70-5.30); pH, Arterial 7.34 (7.35-7.45)
[2020-07-14 12:15] LABS: Puncture Site Arterial Line
[2020-07-14 12:15] LABS: Puncture Site Arterial Line
[2020-07-14 12:16] LABS: Puncture Site Arterial Line
== END 2020-07-10 22:00 | disposition expired | DRG 329 ==
LOC: ERS 13:41 → CCU 16:30 → SURG A 07-05 13:56 → IMCU/EMU 07-05 19:27 → CCU 07-10 19:02
PROVIDERS: ADMIT Surgery; ATTEND Surgery
PROC: 02HV33Z Insertion of Infusion Device into Superior Vena Cava, Percutaneous Approach (ICD-10-PCS; principal; 2020-06-30)
PROC: 0W3G0ZZ Control Bleeding in Peritoneal Cavity, Open Approach (ICD-10-PCS; 2020-06-30)
PROC: 0W9G0ZZ Drainage of Peritoneal Cavity, Open Approach (ICD-10-PCS; 2020-06-30)
PROC: 0WCG0ZZ Extirpation of Matter from Peritoneal Cavity, Open Approach (ICD-10-PCS; 2020-06-30)
PROC: 0DTF0ZZ Resection of Right Large Intestine, Open Approach (ICD-10-PCS; 2020-06-30)
PROC: 0DBB0ZZ Excision of Ileum, Open Approach (ICD-10-PCS; 2020-06-30)
PROC: 0W9G0ZZ Drainage of Peritoneal Cavity, Open Approach (ICD-10-PCS; 2020-06-30)
PROC: 0WCG0ZZ Extirpation of Matter from Peritoneal Cavity, Open Approach (ICD-10-PCS; 2020-06-30)
PROC: 3E033XZ Introduction of Vasopressor into Peripheral Vein, Percutaneous Approach (ICD-10-PCS; 2020-06-30)
PROC: 0D9670Z Drainage of Stomach with Drainage Device, Via Natural or Artificial Opening (ICD-10-PCS; 2020-06-30)
PROC: 30233N1 Transfusion of Nonautologous Red Blood Cells into Peripheral Vein, Percutaneous Approach (ICD-10-PCS; 2020-06-30)
PROC: 30233M1 Transfusion of Nonautologous Plasma Cryoprecipitate into Peripheral Vein, Percutaneous Approach (ICD-10-PCS; 2020-06-30)
PROC: 30233K1 Transfusion of Nonautologous Frozen Plasma into Peripheral Vein, Percutaneous Approach (ICD-10-PCS; 2020-06-30)
PROC: 0BH17EZ Insertion of Endotracheal Airway into Trachea, Via Natural or Artificial Opening (ICD-10-PCS; 2020-06-30)
PROC: 5A1945Z Respiratory Ventilation, 24-96 Consecutive Hours (ICD-10-PCS; 2020-06-30)
PROC: 30233R1 Transfusion of Nonautologous Platelets into Peripheral Vein, Percutaneous Approach (ICD-10-PCS; 2020-07-01)
PROC: 0DBL0ZZ Excision of Transverse Colon, Open Approach (ICD-10-PCS; 2020-07-02)
PROC: 0W3G0ZZ Control Bleeding in Peritoneal Cavity, Open Approach (ICD-10-PCS; 2020-07-02)
PROC: 0WCG0ZZ Extirpation of Matter from Peritoneal Cavity, Open Approach (ICD-10-PCS; 2020-07-02)
PROC: 0D1B0ZL Bypass Ileum to Transverse Colon, Open Approach (ICD-10-PCS; 2020-07-04)
PROC: 0D1N0ZP Bypass Sigmoid Colon to Rectum, Open Approach (ICD-10-PCS; 2020-07-04)
PROC: 0W9930Z Drainage of Right Pleural Cavity with Drainage Device, Percutaneous Approach (ICD-10-PCS; 2020-07-06)
PROC: 5A12012 Performance of Cardiac Output, Single, Manual (ICD-10-PCS; 2020-07-10)
PROC: 0B9J8ZZ Drainage of Left Lower Lung Lobe, Via Natural or Artificial Opening Endoscopic (ICD-10-PCS; 2020-07-10)
PROC: 0B9C8ZZ Drainage of Right Upper Lung Lobe, Via Natural or Artificial Opening Endoscopic (ICD-10-PCS; 2020-07-10)
PROC: 0B9G8ZZ Drainage of Left Upper Lung Lobe, Via Natural or Artificial Opening Endoscopic (ICD-10-PCS; 2020-07-10)
PROC: 0B938ZZ Drainage of Right Main Bronchus, Via Natural or Artificial Opening Endoscopic (ICD-10-PCS; 2020-07-10)
PROC: 0B9F8ZZ Drainage of Right Lower Lung Lobe, Via Natural or Artificial Opening Endoscopic (ICD-10-PCS; 2020-07-10)
PROC: 3E03317 Introduction of Other Thrombolytic into Peripheral Vein, Percutaneous Approach (ICD-10-PCS; 2020-07-10)
PROC: 5A12012 Performance of Cardiac Output, Single, Manual (ICD-10-PCS; 2020-07-10)
PROC: 5A2204Z Restoration of Cardiac Rhythm, Single (ICD-10-PCS; 2020-07-10)
DX: S36.598A Other injury of other part of colon, initial encounter (principal); S35.229A Unspecified injury of superior mesenteric artery, initial encounter; K66.1 Hemoperitoneum; D65 Disseminated intravascular coagulation [defibrination syndrome]; J96.01 Acute respiratory failure with hypoxia; U07.1 COVID-19; S12.200A Unspecified displaced fracture of third cervical vertebra, initial encounter for closed fracture; J93.9 Pneumothorax, unspecified; S12.300A Unspecified displaced fracture of fourth cervical vertebra, initial encounter for closed fracture; I48.20 Chronic atrial fibrillation, unspecified; D62 Acute posthemorrhagic anemia; N17.9 Acute kidney failure, unspecified; S32.011A Stable burst fracture of first lumbar vertebra, initial encounter for closed fracture; S36.409A Unspecified injury of unspecified part of small intestine, initial encounter; E87.0 Hyperosmolality and hypernatremia; K56.7 Ileus, unspecified; E87.2 Acidosis; R57.8 Other shock; E83.42 Hypomagnesemia; E87.6 Hypokalemia; E83.39 Other disorders of phosphorus metabolism; E87.5 Hyperkalemia; R33.9 Retention of urine, unspecified; I46.9 Cardiac arrest, cause unspecified; Y92.410 Unspecified street and highway as the place of occurrence of the external cause; Z79.01 Long term (current) use of anticoagulants; V49.9XXA Car occupant (driver) (passenger) injured in unspecified traffic accident, initial encounter
CPT/HCPCS: 31500; 31624; 36415; 36416; 36430; 36556; 36600; 71045; 74018; 74022; 80048; 80053; 80076; 81001; 82533; 82805; 83605; 83690; 83735; 83880; 84100; 84484; 85025; 85027; 85049; 85300; 85362; 85379; 85384; 85610; 85730; 86850; 86900; 86901; 87086; 88307; 93005; 93010; 93306; 94002; 94003; 94640; 96374; 96375; C9113; C9132; G0390; J0171; J0282; J1100; J1644; J1650; J1815; J1940; J2001; J2250; J2270; J2370; J2405; J2543; J2704; J2765; J2997; J3010; J3475; J3490; J7030; J7050; J7070; J7620; P9012; P9016; P9035; P9045; P9047; P9048; P9059; S0028; U0002